=== PATIENT | male | born 2000 | race Caucasian/White ===

== ENCOUNTER 2022-01-01 22:25 | Emergency (ER) | payer SELFPAY ==
[2022-01-01] MEDS ORDERED: Albuterol 8 GM Inhaler INH ONE (22:26)
[2022-01-01] MEDS: Albuterol/Ipratropium 3.0-0.5 MG/3 ML Neb Soln NEB STA (23:30)
[2022-01-01] MEDS: methylPREDNISolone Sodium Succinate 125 MG/2 ML SDV IM STA (23:30)
== END 2022-01-02 00:20 | disposition home or self-care (01) ==
LOC: FB.ED 22:25
DX: J98.01 Acute bronchospasm (principal); F17.290 Nicotine dependence, other tobacco product, uncomplicated
CPT/HCPCS: 71045; 94640; 96372; 99283; 99285-25; A9270-GY; J2930; J7620